=== PATIENT | female | born 1995 | race Two or more races ===

== ENCOUNTER 2024-09-07 08:57 | Outpatient (RCR) | payer MEDICAID, SELFPAY ==
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
== END 2024-10-04 23:59 | disposition home or self-care (01) ==
LOC: SCTC 08:57
PROVIDERS: PCP Family Medicine; Referring Provider Family Medicine; Visit Provider Internal Medicine Hematology & Oncology
DX: D50.9 Iron deficiency anemia, unspecified (principal)
CPT/HCPCS: 99213; G0463

== ENCOUNTER → 2024-10-15 | Outpatient (CLI) | payer MEDICAID, SELFPAY ==
--- NOTE | 2024-10-15 08:30 | XR_ITS ---
Examination: MRI pelvis with intravenous contrast. MRI pelvis without intravenous contrast. Date and time of exam: October 15, 2024 0840 hrs. Indications: Weight loss constipation abdominal pain 2 years, diagnosis indications anemia unspecified Technique: Multiple axial, sagittal and coronal sections of the pelvis obtained. Transverse images, TR 6020, TE 107. T1 weighted transverse images, TR 582, TE 9.5. T2-weighted sagittal images, TR 4000, TE 105. T2-weighted sagittal images, TR 4000, TE 5. Coronal images, TR 4210, TE 107. Axial and coronal images are obtained post 19 cc intravenous injection, gadolinium. Findings: No common iliac external iliac or common femoral lymphadenopathy Anteverted uterus with no uterine or cervical mass No adnexal mass Mildly distended urinary bladder No presacral mass No free fluid in the pelvis Homogeneous marrow signal Impression: Negative for pelvic mass
--- NOTE | 2024-10-15 08:45 | XR_ITS ---
Examination: MRI abdomen with intravenous contrast. MRI abdomen without intravenous contrast. Date and time of exam: October 15, 2024 at 0803 hrs. Indications: Diagnosis vitamin D deficiency anemia unspecified, frequent fatigue weight loss constipation abdominal pain 2 years Technique: Multiple axial, sagittal and coronal sections of the abdomen obtained. Transverse images, TR 6020, TE 107. T1 weighted transverse images, TR 582, TE 9.5. T2-weighted sagittal images, TR 4000, TE 105. T2-weighted sagittal images, TR 4000, TE 5. Coronal images, TR 4210, TE 107. Axial and coronal images are obtained post 19 cc intravenous injection, gadolinium. Findings: Liver 15 cm no focal liver lesions Moderate splenomegaly 15 cm No gallstones, gallbladder wall does not appear thickened Normal common hepatic common bile duct No pancreatic mass Mild to moderate right hydronephrosis No bowel obstruction Abdominal aorta normal size No pancreatic mass or peripancreatic edema Postcontrast images demonstrate no abnormal enhancing liver splenic or renal lesions Impression: Moderate splenomegaly No pancreatic mass or peripancreatic edema Mild to moderate right hydronephrosis, recommend CT abdomen and pelvis without contrast follow-up, stone study, to assess the etiology of the hydronephrosis
== END | disposition home or self-care (01) ==
LOC: SMRI 07:23
PROVIDERS: PCP Family Medicine; Referring Provider Internal Medicine Hematology & Oncology; Visit Provider Internal Medicine Hematology & Oncology
DX: R16.1 Splenomegaly, not elsewhere classified (principal); N13.30 Unspecified hydronephrosis
CPT/HCPCS: 72197; 74183; A9579

== ENCOUNTER 2024-11-02 13:19 | Outpatient (RCR) | payer MEDICAID, SELFPAY | END 2024-11-03 23:59 | disposition home or self-care (01) | LOC: SCTC 13:19 | PROVIDERS: PCP Family Medicine; Referring Provider Family Medicine; Visit Provider Internal Medicine Hematology & Oncology | DX: D50.9 Iron deficiency anemia, unspecified (principal) | CPT/HCPCS: 96365; 96375; A4216; J2916; J2919; J3490; J7040; J7050 ==

== ENCOUNTER 2024-12-01 13:17 | Outpatient (RCR) | payer MEDICAID, SELFPAY | END 2024-12-04 23:59 | disposition home or self-care (01) | LOC: SCTC 13:17 | PROVIDERS: PCP Family Medicine; Referring Provider Nurse Practitioner Family; Visit Provider Nurse Practitioner Family | DX: D50.9 Iron deficiency anemia, unspecified (principal); R16.1 Splenomegaly, not elsewhere classified; N13.30 Unspecified hydronephrosis | CPT/HCPCS: 96365; 96375; 99212; 99424; 99425; J2916; J2919; J3490; J7040; J7050; G0463 ==

== ENCOUNTER 2024-12-29 13:47 | Outpatient (RCR) | payer MEDICAID, SELFPAY | END 2025-01-03 23:59 | disposition home or self-care (01) | LOC: SCTC 13:47 | PROVIDERS: PCP Family Medicine; Referring Provider Nurse Practitioner Family; Visit Provider Nurse Practitioner Family | DX: D50.9 Iron deficiency anemia, unspecified (principal); R16.1 Splenomegaly, not elsewhere classified; N13.30 Unspecified hydronephrosis | CPT/HCPCS: 96365; 96375; A4216; J2916; J2919; J3490; J7040; J7050 ==

== ENCOUNTER → 2025-01-03 | Outpatient (BNVA) | payer MEDICAID, SELFPAY | END | disposition home or self-care (01) | PROVIDERS: PCP Family Medicine; Referring Provider Family Medicine; Visit Provider Urology | DX: N28.89 Other specified disorders of kidney and ureter (principal); N32.81 Overactive bladder; Q63.2 Ectopic kidney; R16.1 Splenomegaly, not elsewhere classified; F41.9 Anxiety disorder, unspecified; F32.A Depression, unspecified; F17.290 Nicotine dependence, other tobacco product, uncomplicated | CPT/HCPCS: 81003; 99212; G0463 ==

== ENCOUNTER 2025-01-12 13:43 | Outpatient (RCR) | payer MEDICAID, SELFPAY | END 2025-02-03 23:59 | disposition home or self-care (01) | LOC: SCTC 13:43 | PROVIDERS: PCP Family Medicine; Referring Provider Family Medicine; Visit Provider Nurse Practitioner Family | DX: D50.9 Iron deficiency anemia, unspecified (principal); R16.1 Splenomegaly, not elsewhere classified; N13.30 Unspecified hydronephrosis | CPT/HCPCS: 96365; 96375; J2916; J2919; J3490; J7040; J7050 ==

== ENCOUNTER 2025-04-05 11:36 | Outpatient (RCR) | payer MEDICAID, SELFPAY | END 2025-04-05 23:59 | disposition home or self-care (01) | LOC: SCTC 11:36 | PROVIDERS: PCP Family Medicine; Referring Provider Family Medicine; Visit Provider Nurse Practitioner Family | DX: Z76.89 Persons encountering health services in other specified circumstances (principal) | CPT/HCPCS: 99211; G0463 ==

== ENCOUNTER → 2025-04-05 | Outpatient (BNVA) | payer MEDICAID, SELFPAY | END | disposition home or self-care (01) | PROVIDERS: PCP Family Medicine; Referring Provider Family Medicine; Visit Provider Urology | DX: R10.2 Pelvic and perineal pain (principal); F41.9 Anxiety disorder, unspecified; F32.A Depression, unspecified; F17.290 Nicotine dependence, other tobacco product, uncomplicated; Z71.6 Tobacco abuse counseling | CPT/HCPCS: 81003; 99212; G0463 ==

== ENCOUNTER 2025-04-08 10:00 | Outpatient (AMB) | payer MEDICAID, SELFPAY ==
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
[2025-04-08 10:15] VITALS: BP 112/75; PULSE 69; RESP 17; TEMP 36.4; O2SAT 99; BMI 21.1
== END 2025-04-08 10:28 | disposition home or self-care (01) ==
LOC: HODSOBC 10:00
PROVIDERS: Supervising Provider Obstetrics & Gynecology; Visit Provider Obstetrics & Gynecology
DX: N80.9 Endometriosis, unspecified (principal); N30.90 Cystitis, unspecified without hematuria; D50.0 Iron deficiency anemia secondary to blood loss (chronic); N93.9 Abnormal uterine and vaginal bleeding, unspecified; F17.210 Nicotine dependence, cigarettes, uncomplicated; Z71.6 Tobacco abuse counseling
CPT/HCPCS: 99213; G0463

== ENCOUNTER → 2025-04-08 | Outpatient (CLI) | payer MEDICAID, SELFPAY ==
[2025-04-08 11:53] LABS: Follicle Stimulating Hormone 2.99 mIU/mL (See Note)
[2025-04-21 06:38] LABS: Estradiol, Free 1.98 pg/mL; Estradiol, Total 127 pg/mL
== END | disposition home or self-care (01) ==
LOC: COPL 10:41
PROVIDERS: PCP Family Medicine; Referring Provider Obstetrics & Gynecology; Visit Provider Obstetrics & Gynecology
DX: R10.20 Pelvic and perineal pain unspecified side (principal)
CPT/HCPCS: 36415; 82670; 82681; 83001

== ENCOUNTER 2025-05-18 10:10 | Day surgery (SDC) | payer OTHER, SELFPAY ==
[2025-05-13 07:29] VITALS: BMI 22.8
[2025-05-13 09:01] LABS: Basophils # (Auto) 0.0 Thou/mm3 (0.0-0.2); Basophils % (Auto) 1 % (0-2.5); Eosinophils # (Auto) 0.1 Thou/mm3 (0.0-0.5); Eosinophils % (Auto) 2 % (0-10); Hematocrit 43.2 % (36.0-46.0); Hemoglobin 14.2 g/dL (12.0-16.0); Immature Granulocytes Auto 0.02 Thou/mm3 (0.00-0.00); Lymphocytes # (Auto) 1.3 Thou/mm3 (1.0-4.8); Lymphocytes % (Auto) 29 % (10-50); Mean Corpuscular HGB Conc 32.9 g/dl (31.0-37.0); Mean Corpuscular Hemoglobin 30.3 pg (25.0-35.0); Mean Corpuscular Volume 92 fL (80-100); Monocytes # (Auto) 0.4 Thou/mm3 (0.0-0.8); Monocytes % (Auto) 9 % (0-12); Neutrophils # (Auto) 2.7 Thou/mm3 (1.8-7.7); Neutrophils % (Auto) 58 % (37-80); Nucleated Red Blood Cell # 0.00 Thou/mm3 (0.00-0.00); Nucleated Red Blood Cell % 0 /100 WBC (0); Platelet Count 146 Thou/mm3 (140-440); RDW Standard Deviation 44.9 fL (36.4-46.3); Red Blood Count 4.68 Miln/mm3 (4.00-5.20); White Blood Count 4.6 Thou/mm3 (3.6-11.0)
[2025-05-13 09:10] LABS: Alanine Aminotransferase 16 U/L (10-49); Albumin, Serum 4.4 gm/dL (3.5-5.0); Albumin/Globulin Ratio 2.6 (1.2-2.2); Alkaline Phosphatase 61 U/L (46-116); Anion Gap 8 (7-16); Aspartate Amino Transferase 16 U/L (0-34); BUN/Creatinine Ratio 14 Ratio (12-20); Bilirubin,Total 0.4 mg/dL (0.3-1.2); Blood Urea Nitrogen 13 mg/dL (9-23); Calcium 8.8 mg/dL (8.3-10.6); Calcium (Corrected) 8.8 mg/dL (8.5-10.1); Carbon Dioxide 22.3 mMol/L (20.0-31.0); Chloride 114 mMol/L (98-107); Creatinine (Component) 0.9 mg/dL (0.6-1.3); Estimated Creatinine Clearance 92.2 mL/min (>60); Globulin 1.7 gm/dL (2.3-3.5); Glucose 95 mg/dL (74-106); Osmolality,Calculated 286 (275-295); Potassium 4.4 mMol/L (3.4-5.1); Sodium 144 mMol/L (136-145); Total Protein 6.1 gm/dL (5.7-8.2); eGFR > 60 See Note
[2025-05-13 10:58] LABS: HCG,Qualitative Serum Negative
[2025-05-18] VITALS (9 sets, daily range): BP systolic 106–117; BP diastolic 57–64; PULSE 53–104; RESP 14–19; TEMP 36.9–37; O2SAT 100; BMI 21.4
--- NOTE | 2025-05-18 10:48 | PD.GYNHP ---
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 WALKER is a 30 year old female with chronic pelvic pain and abnormal uterine bleeding who is presenting for diagnostic laparoscopy for endometriosis. Patient was evaluated in office and this is a joint procedure that is being performed with the urologist who is also performing a cystoscopy. 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 Constitutional Constitutional: no acute distress Routine HEENT Exam Head: Present normocephalic and atraumatic Eye: Present EOMI and PERRL ENT: Present mucous membranes moist Routine Neck Exam Neck: Present supple and trachea midline Routine Respiratory Exam Respiratory: Present chest non-tender, lungs clear, normal breath sounds and no resp distress Routine Cardiovascular Exam Cardiovascular: Present RRR Routine Abdominal Exam Abdominal: Present soft and normoactive bowel sounds Routine Extremities Exam Extremities: Present full ROM Routine Skin Exam Skin: Present intact and dry Routine Neurological Exam Neurological: Present alert, oriented X3 and CN II-XII intact Routine Psychiatric Exam Psychiatric: Present normal affect and normal thought process 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 Quality Measures Quality Measures VTE prophylaxis
[2025-05-18] MEDS: RINGERS LACTATED 1000 ML 1,000 ML 20 ML IV (10:53)
--- NOTE | 2025-05-18 12:46 | ESOP_ITS ---
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 Identity was confirmed by double identifiers and she was placed on the operating table. General anesthesia was administered and the patient was positioned in the dorsal lithotomy position on Mitchell stirrups. The abdomen and perineum were prepped in the usual sterile fashion and sterile drapes were applied. A timeout procedure was completed. Attention was first turned to the patient's abdomen. A 5 mm incision was made at the base of the umbilicus and laparoscopic entry was accomplished under direct visualization with the Optiview trocar. Pneumoperitoneum was now insufflated to 15 mmHg. Patient was placed in deep Trendelenburg position. The camera was used to first perform initial survey of the peritoneal cavity. Now a 5 mm trocar was placed on either side 2 cm above and medial to the anterior superior iliac spine. The bowel was retracted out of the pelvis. The uterus, both adnexa, the cul-de-sac was all inspected in detail. Inspection was started from the left side the left fallopian tube, the left ovary and the left adnexa were noted to be within normal limits. Similarly on the right side the right fallopian tube and right ovary and the right adnexa were noted to be within normal limits. Then the uterus was anteverted and the posterior aspect was inspected. In the right posteroinferior aspect some spots of endometriosis which appeared superficial were noted in the posterior aspect of the uterine corpus as well as in the right uterosacral ligament. A monopolar spatula was used to cauterize the spots. Hemostasis was noted to be satisfactory. Next the uterus was retroverted and all the anterior aspect was inspected and was noted to be free of any endometriosis or any other abnormal process. Another survey of the upper abdomen, the undersurface of the diaphragm, liver and gallbladder was performed and was noted to be within normal limits without any evidence of endometriosis. Surgicel powder was placed on the cauterization sites. All instruments were now withdrawn. Pneumoperitoneum was desufflated. The laparoscopic trocars were removed. The skin incisions were closed using 4-0 Monocryl in a subcuticular fashion. 10 cc of bupivacaine was injected around the skin incision sites. Dermabond was applied for dressing. The rest of the procedure was handed off to the urologist who continued with his portion of the procedure. Estimated blood loss (ml): 5 Findings: Endometriosis implants on the posterior uterine corpus as well as right uterosacral ligament Complications: none Surgical staff Operation Date: 05/18/25 12:45 <No data on this case meets the specified criteria> Diagnosis Discharge Diagnosis (1) Cystitis, unspecified without hematuria: Status: Acute (2) Unspecified dyspareunia: Status: Acute (3) Endometriosis: Status: Acute (4) Pelvic pain: Status: Acute Problem List Completed Was Problem List Reviewed/Reconciled?: Yes
--- NOTE | 2025-05-18 14:25 | ESOP_ITS ---
Date of Procedure 05/18/25 Pre Op Diagnosis Chronic pelvic pain syndrome, urethral stenosis Post Op Diagnosis Same Procedure Cystoscopic examination, urethral dilation, [place] dilation for diagnostic and therapeutic purposes Findings Urethral stenosis no evidence of interstitial cystitis Procedure Description This is a 30-year-old female. She has PTSD. She has slow urinary stream suprapubic pressure and symptom of urinary tract infection. She was recommended above procedure procedure and complications were discussed with the patient in great detail informed consent is obtained Patient was brought to the operating room in a satisfactory condition after appropriate premedication she was appropriately identified by surgeon and operat ing room staff site scope and indication of the procedure were reconfirmed with the patient general anesthesia was given uneventfully The patient received 160 mg Gentamicin IV pre-op prophylaxis. . Patient was positioned in a dorsal lithotomy position the patient was prepped in a sterile manner. Local anesthetic was placed in the urethra. Cystoscopy was then performed. The urethra had no intrinsic lesions. Examination of the bladder revealed no evidence of cancerous lesions, papillary or polyp type, lesions or stones. Bladder was filled with 350 cc of water drained cystoscope was perfor med again no evidence of interstitial cystitis was identified, both ureters were putting out clear urine. The urethra had mid urethral stenosis and the urethra was dilated up to 30Fr with dilators. The bladder was completely drained and the scope was removed. The patient tolerated the procedure well. Post-op instructions were given. The patient is to call the office should any problems occur. Follow-up appointment in urology office is given in 3 months Anesthesia GETA Pathology / specimen None Estimated Blood Loss 0.2 Condition Stable Disposition PACU Surgeon Marquita Dimas MD Surgical Staff Operation Date: 05/18/25 12:45 <No data on this case meets the specified criteria>
--- NOTE | 2025-05-18 14:32 | PD.SUROPNT ---
Date of Procedure 05/18/25 Procedure Cystoscopic examination, urethral dilation, [place] dilation for diagnostic and therapeutic purposes Surgeon Marquita Dmias MD Surgical Staff Operation Date: 05/18/25 12:45 <No data on this case meets the specified criteria>
--- NOTE | 2025-05-18 14:56 | SUR.PHASEI ---
1422: Pt received in [facility] via gurney. Report from Janes HENDERSON and Dr. Zaldivar. Pt groggy. Easily aroused with eye opening. Resp even, unlabored. VS stable. Surgical sites x3 to abdomen secured with dermabond. Areas dry, clean, intact with no swelling, discoloration. Denies pain. 1450: Pt resting with no complaints voiced. Resp even, unlabored. VS stable. Surgical sites dry, clean, intact with no swelling, discoloration. Denies pain.
--- NOTE | 2025-05-18 15:50 | SUR.PHASEII ---
1510: Pt more awake, alert. VS stable. Surgical sites remain dry, clean, intact with no swelling, discoloration. No c/o pain. Pt sitting up tolerating po fluids with no difficulty swallowing and no n/v. 1545: Pt fully awake, oriented x3. Pt dressed. Assisted to restroom. Ambulation steady. Pt and aunt stated understanding of discharge instructions. Pt discharged from [facility] in stable condition.
== END 2025-05-18 15:45 | disposition home or self-care (01) ==
PROVIDERS: PCP Urology; Referring Provider Obstetrics & Gynecology; Visit Provider Obstetrics & Gynecology
PROC: 0T7B8ZZ Dilation of Bladder, Via Natural or Artificial Opening Endoscopic (ICD-10-PCS; CPT 52281; principal; 2025-05-18 12:30)
PROC: (CPT 49320; 2025-05-18 12:30)
DX: N80.30 Endometriosis of pelvic peritoneum, unspecified (principal); N35.92 Unspecified urethral stricture, female; F43.10 Post-traumatic stress disorder, unspecified
CPT/HCPCS: 58662; 52281; 36415; 80053; 84703; 85025; 86850; 86900; 86901; A4217; A4649; J0131; J1100; J1580; J1885; J2250; J2405; J2704; J3010; J3490; J7120

== ENCOUNTER 2025-05-31 13:55 | Outpatient (AMB) | payer OTHER, SELFPAY ==
[2025-05-31 14:14] VITALS: BP 111/74; PULSE 80; RESP 18; TEMP 36.2; O2SAT 98
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
== END 2025-05-31 14:52 | disposition home or self-care (01) ==
LOC: HODSOBC 13:55
PROVIDERS: PCP Urology; Referring Provider Urology; Supervising Provider Obstetrics & Gynecology; Visit Provider Obstetrics & Gynecology
DX: Z48.816 Encounter for surgical aftercare following surgery on the genitourinary system (principal); G89.18 Other acute postprocedural pain; R10.817 Generalized abdominal tenderness; R07.89 Other chest pain; Z87.42 Personal history of other diseases of the female genital tract
CPT/HCPCS: 99213; G0463